=== PATIENT | female | born 1995 | race Caucasian/White ===

== ENCOUNTER 2016-07-22 19:08 | Emergency (ER) | payer OTHER ==
[~2016-07-22] VITALS: Ht 160 cm; Wt 90.0 kg
[~2016-07-22 19:08] MED LIST: CEPH500C PO; FERR27TA PO; FERROUS SULFATE PO; HYDR-906 PO; IBUP-1542 PO; NAPR-260 PO; PHEN177S43 MT; PREN1TAB49 PO
[2016-07-22 19:47] VITALS: Ht 160 cm; Wt 90.0 kg
[2016-07-22 20:23] LABS: URINE BLOOD (Dip) POC 2+ (NEGATIVE)
[2016-07-22] MEDS ORDERED: KETOROLAC 60 MG INJ IM STA (20:36)
[2016-07-22] MEDS ORDERED: ONDANSETRON (ODT) 4 MG TAB ODT STA (20:36)
[2016-07-22] MEDS ORDERED: HYDR-906 PO (20:45)
[2016-07-22] MEDS ORDERED: IBUP-1542 PO (20:45)
--- NOTE | 2016-07-22 20:51 | ERD ---
ER Documentation Chief Complaint Date/Time DATE: 07/22/16 TIME: 20:50 Chief Complaint Frequency and burning in Urine since 1200 HPI This 21-year-old female presents with dysuria starting today. She also has pain in the right flank rating to her right groin. She has a history of kidney stones 4 years ago. She has a fevers, vomiting, short breath or chest pain. She denies . ROS All systems reviewed and are negative except as per history of present illness. Medications Home Meds Active Scripts Hydrocodone/Acetaminophen ([place] 5-325 Tablet) 1 Each Tablet, 1 TAB PO Q6H Y for PAIN, #14 TAB Prov:JACK GLOVER MD 07/22/16 Ibuprofen* (Motrin*) 600 Mg Tab, 600 MG PO Q6, #20 TAB Prov:JACK GLOVER MD 07/22/16 Naproxen* (Naprosyn*) 500 Mg Tablet, 500 MG PO BID Y for PAIN AND/OR INFLAMMATION, #30 TAB Prov:NIA TORRES PA-C 05/13/16 Hydrocodone/Acetaminophen ([place] 5-325 Tablet) 1 Each Tablet, 1 TAB PO Q6H Y for PAIN, #20 TAB Prov:NIA TORRES PA-C 05/13/16 Phenol* (Chloraseptic* [place]) 177 Ml [place].pump, 2 SPRAY MT Q2H Y for SORE THROAT for 7 Days, BOTTLE Prov:GIOVANI ROMO 03/28/15 Ibuprofen* (Motrin*) 600 Mg Tab, 600 MG PO Q8 for PAIN AND/OR INFLAMMATION, #20 Prov:GIOVANI ROMO 03/28/15 Hydrocodone Bit-Acetaminophen ([place]) 5-325 Mg Tablet, 1 TAB PO Q4H Y for PAIN, #7 TAB Prov:GIOVANI ROMO 03/28/15 Cephalexin* (Cephalexin*) 500 Mg Capsule, 500 MG PO Q6 for 7 Days, CAP Prov:GIOVANI ROMO 03/28/15 Reported Medications [Ferous Sulphate] No Conflict Check, PO TID for 30 Days 02/25/12 Vits W-Ca,Fe,Fa(<1MG) () 1 Tab Tablet, 1 TAB PO DAILY for 30 Days 8/29/12 Ferrous Sulfate (Iron) 1 Tab Tablet, 1 TAB PO DAILY 09/17/11 Vits W-Ca,Fe,Fa(<1MG) () 1 Tab Tablet, 1 TAB PO DAILY 09/17/11 Allergies Allergies: Coded Allergies: No Known Allergy (Unverified , 03/28/15) PMhx/Soc History of Surgery: Yes (KIDNEY STONES) Anesthesia Reaction: No Hx Neurological Disorder: No Hx Respiratory Disorders: No Hx Cardiac Disorders: No Hx Psychiatric Problems: No Hx Miscellaneous Medical Probl: No Hx Alcohol Use: Yes (Occasional) Hx Substance Use: No Hx Tobacco Use: No Physical Exam Vitals Vital Signs Date Time Temp Pulse Resp B/P Pulse Ox O2 Delivery O2 Flow Rate FiO2 07/22/16 19:47 98.2 81 20 132/81 100 Physical Exam Const: [] Alert, not ill-appearing. Head: Atraumatic Eyes: Normal Conjunctiva ENT: Normal External Ears, Nose and Mouth. Neck: Full range of motion..~ No meningismus. Resp: Clear to auscultation bilaterally Cardio: Regular rate and rhythm, no murmurs Abd: Soft, mild tenderness the right flank rating to the right mid abdomen., non distended. Normal bowel sounds Skin: No petechiae or rashes Back: No midline tenderness or deformities. Mild right flank tenderness radiating to the right lower abdomen. Ext: No cyanosis, or edema Neur: Awake and alert Psych: Normal Mood and Affect Results 24 hrs Laboratory Tests Test 07/22/16 20:24 Bedside Urine Blood 2+ Bedside Urine Glucose (UA) Negative Bedside Urine Ketones (LAB) Negative Bedside Urine Leukocyte Esterase (L Negative Bedside Urine Nitrite (LAB) Negative Bedside Urine Protein (LAB) Negative Bedside Urine pH (LAB) 6.0 Current Medications Medications (Trade) Dose Ordered Sig/Damion Route PRN Reason Start Time Stop Time Status Last Admin Dose Admin Ketorolac Tromethamine (Toradol) 60 mg ONCE STAT IM 07/22/16 20:36 07/22/16 20:38 DC 07/22/16 20:42 Acetaminophen/ Hydrocodone Bitart ([place] (5/325)) 1 tab ONCE ONCE PO 07/22/16 21:00 07/22/16 21:01 07/22/16 20:43 Ondansetron HCl (Zofran Odt) 8 mg ONCE STAT ODT 07/22/16 20:36 07/22/16 20:38 DC 07/22/16 20:42 Procedures/MDM Urine shows positive hemoglobin without leukocytes, nitrites or glucose. Patient was given Toradol 60 modems IM, and [place] 5 modems by mouth and Zofran [address] abdomen and pelvis results pending at time of dictation. Patient will be signed out to nurse chloe dejesus supervising ER physician for evaluation of CT results. Patient signed symptoms suggestive of possible renal colic. Signs or symptoms currently not suggestive of appendicitis, acute abdomen, tumor an abscess, PID, sepsis, additional causes of abdominal pain or flank pain and dysuria. Departure Diagnosis: Primary Impression: Kidney stone Condition: Stable Patient Instructions: Flank Pain, Uncertain Cause, Kidney Stone W/ Colic Additional Instructions: Drink any fluids. Recheck for new or worsening symptoms-fevers, worsening pain, new or worsening symptoms or with primary care doctor. JACK GLOVER MD Jul 22, 2016 20:51
[2016-07-22] MEDS ORDERED: HYDROCODONE/APAP (5/325) TAB PO ONE (21:00)
--- NOTE | 2016-07-22 21:47 | RADRPT ---
PROCEDURE: CT Abdomen and Pelvis without contrast CLINICAL INDICATION: Point pain, hematuria TECHNIQUE: Transaxial images were obtained through the abdomen and pelvis on a multi-slice scanner without the intravenous contrast administration. No oral contrast had previously been given. Sagit kyra and coronal re-formations were subsequently reconstructed. One or more of the following dose reduction techniques were used: - Automated exposure control. - Adjustment of the mA and/or kV according to patient size. - Use of iterative reconstruction technique. Radiation dose: CTDIvol = 19.57 mGy; DLP = 1062.75 mGy-cm. COMPARISON: No prior studies are available for comparison. FINDINGS: Lung bases: The visualized lung bases appear unremarkable. Liver: The liver is enlarged but no focal lesion is identified. Gallbladder: The wall is not thickened. No radiopaque stones are identified. Bile ducts: The intra and extrahepatic bile ducts are normal in caliber. Pancreas: Appears normal with no mass or inflammation evident. Spleen: Normal in size with no focal lesion. Adrenals: Normal with no mass identified. Kidneys, ureters and bladder: A 6 x 5 x 5 mm distal right ureterolith is seen at the right ureterove sicular junction associated with mild right hydronephrosis/hydroureter. A 4 mm nonobstructing nephr olith is seen within the superior pole salome of the right kidney, a 2 mm nephrolith is seen within t he posterior superior pole salome, and a 2 mm calcification is seen within a midpole salome. On the l eft, at least 5 nonobstructing nephroliths from 2-3 mm are evident but there is no hydronephrosis an d the left ureter is unremarkable. The bladder appears normal. Reproductive organs: The uterus is midline and contains an IUD. No adnexal mass is evident. Stomach and bowel: The stomach appears unremarkable but contains a moderate amount of food debris. There is abundant stool within the colon but there is no evidence of bowel obstruction or inflammati on. Appendix: A normal vermiform appendix is evident. Peritoneum: No free intraperitoneal fluid or air is identified. Aorta: Normal in caliber with no aneurysmal dilatation. IVC: Unremarkable. Lymph nodes: No pathologically enlarged nodes are identified. Osseous structures: The osseous elements appear intact. IMPRESSION: 1. A 6 x 5 x 5 mm distal right ureterolith seen at the right ureterovesicular junction associated w ith mild right hydronephrosis/hydroureter. Several bilateral nephroliths are identified but there i s no evidence of urinary outflow obstruction on the left and there is no ureterolith on the left. T he bladder appears unremarkable. 2. No evidence of bowel obstruction or inflammation with a normal-appearing vermiform appendix. Sub stantial stool seen in the colon and the stomach is moderately distended with food debris. 3. Mild hepatomegaly with no focal lesion. 4. An IUD is seen within the uterus. 5. Otherwise, unremarkable noncontrast enhanced CT scan of the abdomen and pelvis. Physician Mela Date Time Electronically viewed and signed by Physician Mela on 07/22/2016 21:47 RH/
--- NOTE | 2016-07-22 22:51 | QN ---
Documentation Comment PROCEDURE: CT Abdomen and Pelvis without contrast CLINICAL INDICATION: Point pain, hematuria TECHNIQUE: Transaxial images were obtained through the abdomen and pelvis on a multi-slice scanner without the intravenous contrast administration. No oral contrast had previously been given. Sagittal and coronal re-formations were subsequently reconstructed. One or more of the following dose reduction techniques were used: - Automated exposure control. - Adjustment of the mA and/or kV according to patient size. - Use of iterative reconstruction technique. Radiation dose: CTDIvol = 19.57 mGy; DLP = 1062.75 mGy-cm. COMPARISON: No prior studies are available for comparison. FINDINGS: Lung bases: The visualized lung bases appear unremarkable. Liver: The liver is enlarged but no focal lesion is identified. Gallbladder: The wall is not thickened. No radiopaque stones are identified. Bile ducts: The intra and extrahepatic bile ducts are normal in caliber. Pancreas: Appears normal with no mass or inflammation evident. Spleen: Normal in size with no focal lesion. Adrenals: Normal with no mass identified. Kidneys, ureters and bladder: A 6 x 5 x 5 mm distal right ureterolith is seen at the right ureterovesicular junction associated with mild right hydronephrosis /hydroureter. A 4 mm nonobstructing nephrolith is seen within the superior pole salome of the right kidney, a 2 mm nephrolith is seen within the posterior superior pole salome, and a 2 mm calcification is seen within a midpole salome. On the left, at least 5 nonobstructing nephroliths from 2-3 mm are evident but there is no hydronephrosis and the left ureter is unremarkable. The bladder appears normal. Reproductive organs: The uterus is midline and contains an IUD. No adnexal mass is evident. Stomach and bowel: The stomach appears unremarkable but contains a moderate amount of food debris. There is abundant stool within the colon but there is no evidence of bowel obstruction or inflammation. Appendix: A normal vermiform appendix is evident. Peritoneum: No free intraperitoneal fluid or air is identified. Aorta: Normal in caliber with no aneurysmal dilatation. IVC: Unremarkable. Lymph nodes: No pathologically enlarged nodes are identified. Osseous structures: The osseous elements appear intact. IMPRESSION: 1. A 6 x 5 x 5 mm distal right ureterolith seen at the right ureterovesicular junction associated with mild right hydronephrosis/hydroureter. Several bilateral nephroliths are identified but there is no evidence of urinary outflow obstruction on the left and there is no ureterolith on the left. The bladder appears unremarkable. 2. No evidence of bowel obstruction or inflammation with a normal-appearing vermiform appendix. Substantial stool seen in the colon and the stomach is moderately distended with food debris. 3. Mild hepatomegaly with no focal lesion. 4. An IUD is seen within the uterus. 5. Otherwise, unremarkable noncontrast enhanced CT scan of the abdomen and pelvis. Physician Mela Date Time Electronically viewed and signed by Physician Mela on 07/22/2016 21:47 RH/ CC: JACK GLOVER MD, Dr signed out this patient with me pending CT scan results, this was reviewed, patient has kidney stones, patient is discharged according to his instruction, patient is stable upon discharge. PRASAD PHILLIP NP Jul 22, 2016 22:51
[2016-07-23] MEDS ORDERED: ONDA4TAB14 PO (09:29)
[2016-07-23] MEDS ORDERED: TAMS-14 PO (09:30)
[2016-07-23] MEDS ORDERED: NAPR-260 PO (09:30)
== END 2016-07-22 23:06 | disposition home or self-care (01) ==
LOC: FTE 19:08
DX: N20.0 Calculus of kidney (principal); R11.10 Vomiting, unspecified
CPT/HCPCS: 74176; 81003; J1885; Z7610; 96372

== ENCOUNTER 2016-07-23 08:39 | Emergency (ER) | payer OTHER ==
[~2016-07-23] VITALS: Wt 85.0 kg
--- NOTE | 2016-07-23 09:16 | ERD ---
ER Documentation Chief Complaint Date/Time DATE: 07/23/16 TIME: 09:14 Chief Complaint RIGHT FLANK PAIN SINCE YESTERDAY. SEEN IN ER, DX KIDNEY STONES. NO RELEIF HPI 21 y/o female presents to ED for right flank pain. Pain was described as sharp non-radiating with a rate of 10/10 at this time. Was here at the emergency room last night for the same complaint. CT scan of the abdomen/pelvis was done last night revealed right kidney stone. Was discharged with final diagnosis of right kidney stone and with prescriptions of Tylenol and Motrin patient states that Motrin did not help her. Denies headache, loss of consciousness, dizziness, blurry vision, changes in vision, photophobia, facial pain, ear pain, throat pain, difficulty swallowing, neck pain, shoulder pain, chest pain, cough, hemoptysis, loss of appetite, nausea, vomiting, hematochezia, diarrhea, constipation, urinary symptoms, , the possibility of being , bladder and bowel incontinences, extremity weakness, extremity tenderness, numbness or tingling sensation, difficulty walking, recent travel, recent exposure to illness, recent antibiotic use in the last 3 months, fever, chills. Allergy: NKA PMH: Right kidney stone 10 years ago. Family medical history: Denies AO LMP: "I am on it right now." Medications: Tylenol, Motrin Surgery: Lithotripsy 10 years ago. Primary Social History: printer assistant. Occasional drinks alcoholic beverages. Denies smoking, use of illegal drugs. ROS All systems reviewed and are negative except as per history of present illness. Medications Home Meds Active Scripts Naproxen* (Naprosyn*) 500 Mg Tablet, 500 MG PO BID Y for PAIN AND/OR INFLAMMATION, #30 TAB Prov:PASILABANRICHARDAR F 07/23/16 Tamsulosin Hcl* (Flomax*) 0.4 Mg Cap.er.24h, 0.4 MG PO DAILY, #30 CAP Prov:PASILABAN,RICHARDAR F 07/23/16 Ondansetron (Ondansetron Odt) 4 Mg Tab.rapdis, 4 MG PO Q6H Y for NAUSEA AND/OR VOMITING, #10 TAB Prov:PASILABAN,KLAR F 07/23/16 Hydrocodone/Acetaminophen ([place] 5-325 Tablet) 1 Each Tablet, 1 TAB PO Q6H Y for PAIN, #14 TAB Prov:JACK GLOVER MD 07/22/16 Ibuprofen* (Motrin*) 600 Mg Tab, 600 MG PO Q6, #20 TAB Prov:JACK GLOVER MD 07/22/16 Naproxen* (Naprosyn*) 500 Mg Tablet, 500 MG PO BID Y for PAIN AND/OR INFLAMMATION, #30 TAB Prov:NIA TORRES PA-C 05/13/16 Hydrocodone/Acetaminophen ([place] 5-325 Tablet) 1 Each Tablet, 1 TAB PO Q6H Y for PAIN, #20 TAB Prov:NIA TORRESC 05/13/16 Phenol* (Chloraseptic* [place]) 177 Ml [place].pump, 2 SPRAY MT Q2H Y for SORE THROAT for 7 Days, BOTTLE Prov:GIOVANI ROMO 03/28/15 Ibuprofen* (Motrin*) 600 Mg Tab, 600 MG PO Q8 for PAIN AND/OR INFLAMMATION, #20 Prov:GIOVANI ROMO 03/28/15 Hydrocodone Bit-Acetaminophen ([place]) 5-325 Mg Tablet, 1 TAB PO Q4H Y for PAIN, #7 TAB Prov:GIOVANI ROMO 03/28/15 Cephalexin* (Cephalexin*) 500 Mg Capsule, 500 MG PO Q6 for 7 Days, CAP Prov:GIOVANI ROMO 03/28/15 Reported Medications [Ferous Sulphate] No Conflict Check, PO TID for 30 Days 02/25/12 Vits W-Ca,Fe,Fa(<1MG) () 1 Tab Tablet, 1 TAB PO DAILY for 30 Days 02/25/12 Ferrous Sulfate (Iron) 1 Tab Tablet, 1 TAB PO DAILY 09/17/11 Vits W-Ca,Fe,Fa(<1MG) () 1 Tab Tablet, 1 TAB PO DAILY 09/17/11 Allergies Allergies: Coded Allergies: No Known Allergy (Unverified , 07/23/16) PMhx/Soc Right kidney stones 10 years ago. History of Surgery: Yes (KIDNEY STONES) Anesthesia Reaction: No Hx Neurological Disorder: No Hx Respiratory Disorders: No Hx Cardiac Disorders: No Hx Psychiatric Problems: No Hx Miscellaneous Medical Probl: No Hx Alcohol Use: Yes (Occasional) Hx Substance Use: No Hx Tobacco Use: No Smoking Status: Never smoker FmHx Denies Physical Exam Vitals Vital Signs Date Time Temp Pulse Resp B/P Pulse Ox O2 Delivery O2 Flow Rate FiO2 07/23/16 08:42 98.5 85 20 135/82 99 Physical Exam CONSTITUTIONAL: Well-appearing; well-nourished; in no apparent distress. HEAD: Normocephalic; atraumatic. EYES: Conjunctiva clear, sclera non-icteric, EOM intact. PERRL Ears: Hearing intact. EACs clear, TMs non-bulging, non-inflamed, translucent & mobile, ossicles normal appearance, No obstructions, no erythema, no discharges Nose: No obstructions. No polyps. No external lesions. Mucosa non-inflamed. No external lesions, septum and turbinates normal. No rhinorrhea. No discharges. Frontal sinus is non-tender to palpation. Maxillary sinus is non-tender to palpation. MOUTH: Moist mucous membranes, no lesion, no obstructions, no vesicles, no thrush, patent airway Throat: Uvula in midline. Right tonsil is +1 with no erythema, no exudate. Left tonsil is +1 with no erythema, no exudate. Tolerating secretions well. Good gag reflex. Patent airway. Neck: Supple, without lesions, bruits, or adenopathy. No mass. Thyroid non- enlarged and non-tender to palpation. CHEST: Symmetrical chest. Respirations even and not labored. No retractions noted. CARDIOVASCULAR: Normal S1, S2. RRR. No murmurs, gallops. RESPIRATORY: Normal chest excursion with respiration; breath sounds clear and equal bilaterally; no wheezes, rhonchi, or rales. Breathing even and unlabored. Speaking in clear, full, and complete sentences w/ ease. ABDOMEN: Normal bowel sounds normal. Soft, round, non-distended, non-guarding, no tenderness, no rebound, no organomegaly, no masses, no pulsating abdominal mass. No hernia. No peritoneal signs. : Right CVA tenderness. BACK: Symmetrical shoulder. Spine is midline without deformity, tenderness. No evidence of trauma or deformity. PELVIS: Stable pelvis. No evidence of trauma or deformity. MUSCULOSKELETAL: Normal gait and station. No misalignment, asymmetry, crepitation, defects, tenderness, masses, effusions, decreased range of motion, instability, atrophy or abnormal strength or tone in the head, neck, spine, ribs , pelvis or extremities. No calf tenderness. NEUROVASCULAR: Distal pulses are present. Pedal pulse are present, equal, and normal. Capillary refills are < 2 seconds. NEUROLOGIC: Alert and oriented x4. Speaks full and clear sentences. Cranial Nerves II-XII normal. Sensation to pain, touch, and proprioception normal. Grossly unremarkable. No neurologic deficits. Romberg test is negative. PSYCHOLOGICAL: The patients mood and manner are appropriate. No hallucinations , delusions. Not SI. Not HI. Has the capacity to decide for self SKIN: Normal for age and ethnicity; warm; dry; good turgor; no apparent lesions or exudates. No rashes, hives, discoloration. Intact. Results 24 hrs Current Medications Medications (Trade) Dose Ordered Sig/Damion Route PRN Reason Start Time Stop Time Status Last Admin Dose Admin Ketorolac Tromethamine (Toradol) 30 mg ONCE STAT IM 07/23/16 09:25 07/23/16 09:26 DC 07/23/16 09:35 Ondansetron HCl (Zofran Odt) 4 mg ONCE STAT ODT 07/23/16 09:25 07/23/16 09:26 DC 07/23/16 09:35 Procedures/MDM Examination: Unremarkable examination except right CVA tenderness. Case, medical management, follow-up care was discussed with supervising physician. He agreed with my medical management and follow-up care. Disease process, medical treatment was explained to the patient and family member. They verbalized understanding and agreed with the diagnostic tests, medical treatment, and follow-up care. Treatment: Toradol IM, Zofran ODT. Re-evaluation: Relieve the pain. Consultation: None Differential diagnosis: Kidney stones versus sciatica versus back pain Medical decision makin21 y/o female presents to ED for right flank pain. Pain was described as sharp non-radiating with a rate of 10/10 at this time. Was here at the emergency room last night for the same complaint. CT scan of the abdomen/pelvis was done last night revealed right kidney stone. Was discharged with final diagnosis of right kidney stone and with prescriptions of Tylenol and Motrin patient states that Motrin did not help her. Case was discussed with supervising physician. Patient was managed with pain medication and was discharged home with Flomax, Motrin. Patient's history, complaint, diagnostic tests yesterday, physical findings are consistent with my final diagnosis of kidney stones. Medications prescribed are the following: Motrin, Flomax Patient and family member are made aware of the side effects and adverse reactions of the medications prescribed. Instructed on when to seek emergent and medical attention in case allergic/anaphylactic reactions or severe side effects and or adverse reactions to medications. Patient and family member verbalized understanding. Patient instructed Instructed to follow-up with his PCP in 24-48 hours. PCP will refer patient to urologist/electrician radio. Instructed to Call 911 for chest pain, shortness of breath. Advised to come back here in ED as soon as possible for severity of symptoms which includes but not limited to: any new symptoms; shortness of breath/difficulty of breathing; cardiovascular changes; severe gastrointestinal symptoms; signs and symptoms of bleeding and or infection; signs of compartment syndrome/neurovascular changes; neurological changes/deficits. Patient and family member verbalized understanding. Upon discharge, patient is alert and oriented x 4, speaks full and clear sentences, denies pain, has no neurological deficits, has no neurovascular deficits, difficulty of breathing. Breathing even and unlabored. Lung sounds are clear to auscultation. Not in distress. Appears comfortable. Ambulatory with steady gait. Appears satisfied with care provided here in ED. Departure Condition: Stable Additional Instructions: Follow-up with PCP in 24-48 hours. PCP will refer patient to urologist/ electrician radio. ORESTES MAC Jul 23, 2016 09:15
[2016-07-23] MEDS ORDERED: KETOROLAC 30 MG INJ IM STA (09:25)
[2016-07-23] MEDS ORDERED: ONDANSETRON (ODT) 4 MG TAB ODT STA (09:25)
[2016-07-23] MEDS ORDERED: ONDA4TAB14 PO (09:29)
[2016-07-23] MEDS ORDERED: TAMS-14 PO (09:30)
[2016-07-23] MEDS ORDERED: NAPR-260 PO (09:30)
== END 2016-07-23 09:57 | disposition home or self-care (01) ==
LOC: FTE 08:39
DX: N20.0 Calculus of kidney (principal)
CPT/HCPCS: J1885; Z7610; 96372

== ENCOUNTER 2016-07-25 18:54 | Emergency (ER) | payer OTHER ==
[~2016-07-25] VITALS: Wt 93.0 kg
[~2016-07-25 18:54] MED LIST changes: +ONDA4TAB14 PO; +TAMS-14 PO
[2016-07-25] MEDS ORDERED: SOD CHLORIDE 0.9% 1,000 ML IV STA (21:06)
[2016-07-25] MEDS ORDERED: morphine 4 MG/ML VIAL IV STA (21:06)
[2016-07-25] MEDS ORDERED: KETOROLAC 30 MG INJ IV STA (21:06)
[2016-07-25] MEDS ORDERED: ONDANSETRON 4 MG INJ IV STA (21:06)
[2016-07-25 21:31] LABS: ADD UMIC YES; URINE BILIRUBIN (Dip) NEGATIVE (NEGATIVE); URINE BLOOD (Dip) TRACE (NEGATIVE); URINE COLOR LT. YELLOW (YELLOW); URINE GLUCOSE (Dip) NEGATIVE (NEGATIVE); URINE KETONES (Dip) NEGATIVE (NEGATIVE); URINE LEUKOCYTE ESTERASE (Dip) TRACE (NEGATIVE); URINE NITRITE (Dip) NEGATIVE (NEGATIVE); URINE TOTAL PROTEIN (Dip) NEGATIVE (NEGATIVE); URINE UROBILINOGEN (Dip) 0.2 E.U./dL (0.1-1.0)
[2016-07-25 21:49] LABS: BACTERIA,URINE RARE; SQUAMOUS EPITHELIAL CELL,UR FEW
[2016-07-25 21:57] LABS: ALBUMIN 3.8 g/dl (3.3-4.9)
[2016-07-25 22:00] LABS: ALBUMIN/GLOBULIN RATIO 1.05; BILIRUBIN,INDIRECT 0.1 mg/dl (0-1.1); BILIRUBIN,TOTAL 0.1 mg/dl (0.2-1.3); CREATININE 0.74 mg/dl (0.44-1.00); TOTAL PROTEIN 7.4 g/dl (6.1-8.1)
[2016-07-25 22:01] LABS: BASOPHILS % 0.3 % (0.0-2.0); CALCIUM 8.8 mg/dl (8.4-10.2); EOSINOPHILS # 0.2 10^3/ul (0.0-0.5); EOSINOPHILS % 1.4 % (0.0-7.0); HEMATOCRIT 35.6 % (37.0-47.0); HEMOGLOBIN 11.9 g/dl (12.0-16.0); LYMPHOCYTES # 3.4 10^3/ul (0.8-2.9); LYMPHOCYTES % 26.6 % (15.0-51.0); MEAN CORPUSCULAR HGB CONC 33.5 g/dl (32.0-37.0); MEAN CORPUSCULAR VOLUME 77.6 fl (82.0-101.0); MEAN PLATELET VOLUME 8.7 fl (7.4-10.4); MONOCYTES % 7.8 % (0.0-11.0); NEUTROPHIL # 8.2 10^3/ul (1.6-7.5); NEUTROPHILS % 63.9 % (39.0-77.0); PLATELET COUNT 258 10^3/UL (140-440); RED BLOOD COUNT 4.58 10^6/ul (4.20-5.40); RED CELL DISTRIBUTION WIDTH 13.8 % (11.5-14.5); UNCORRECTED WBC 12.9 10^3/ul (4.8-10.8); WHITE BLOOD COUNT 12.9 10^3/ul (4.8-10.8)
[2016-07-25 22:07] LABS: CONDITION 1; LH ANALYZER COMMENTS 1
--- NOTE | 2016-07-25 23:50 | ERD ---
ER Documentation Chief Complaint Date/Time DATE: 07/25/16 Chief Complaint Right flank pain, diagnosed with kidney stone 07/22/16, here for pain relief HPI The patient is a 21-year-old female who presents to the Emergency Department with complaint of right flank pain. The patient reports that her pain began three days ago, 07/22/2016, with sudden onset of sharp right-sided flank pain radiating towards the right groin. The patient was evaluated in the Emergency Department for these symptoms, and CT imaging revealed a 6 x 5 x 5 mm distal right ureterolith is seen at the right ureterovesicular junction associated with mild right hydronephrosis/hydroureter, identifying the cause of the patient 's symptoms. The patient's pain was controlled in the ED, and she was discharged home with prescriptions for [place] and Ibuprofen. The patient's pain was controlled throughout that night, but by the next day, she began to experience increasing pain. She returned to the ED on 07/23/2016 for recurrent pain, and was once again given medications in the ED, including Toradol, and her pain resolved. This time, she was discharged home with Naproxen and Flomax (though she has not filled, or taken the Flomax as of yet), and was advised to follow up with her primary medical provider to obtain referral to urology for further evaluation. The patient's pain was well controlled until this afternoon , when it returned. She notes that she has tried to take the prescribed Naproxen (12:00 pm) and [place] (4:00 pm), with no adequate relief of pain. She describes sharp, non-radiating 10/10 right-sided flank pain at this time. Of note, the patient has a known history of prior kidney stones, last treated 10 years ago with lithotripsy. She denies any dysuria, fevers, chills, vomiting, diarrhea, black/bloody stools, vaginal discharge, chest pain, palpitations, shortness of breath. Denies current . The patient does state that after her last ED discharge (07/23/2016) she called her urologist, and was told that the next available appointment is in 2 weeks. ROS All systems reviewed and are negative except as per history of present illness. Medications Home Meds Active Scripts Cephalexin* (Keflex*) 500 Mg Capsule, 500 MG PO QID for 7 Days, CAP Prov:VANNESSA,LAVERNE PA-C 07/25/16 Tamsulosin Hcl* (Flomax*) 0.4 Mg Cap.er.24h, 0.4 MG PO QPM, #14 CAP Prov:LAVERNE HURD PA-C 07/25/16 Oxycodone HCl/Acetaminophen (Percocet 5-325 mg Tablet) 1 Each Tablet, 1 EACH PO Q6, #10 TAB Prov:LAVERNE HURD PA-C 07/25/16 Naproxen* (Naprosyn*) 500 Mg Tablet, 500 MG PO BID Y for PAIN AND/OR INFLAMMATION, #30 TAB Prov:ORESTES MAC 07/23/16 Tamsulosin Hcl* (Flomax*) 0.4 Mg Cap.er.24h, 0.4 MG PO DAILY, #30 CAP Prov:ORESTES MAC F 07/23/16 Ondansetron (Ondansetron Odt) 4 Mg Tab.rapdis, 4 MG PO Q6H Y for NAUSEA AND/OR VOMITING, #10 TAB Prov:ORESTES MAC 07/23/16 Hydrocodone/Acetaminophen ([place] 5-325 Tablet) 1 Each Tablet, 1 TAB PO Q6H Y for PAIN, #14 TAB Prov:JACK GLOVER MD 07/22/16 Ibuprofen* (Motrin*) 600 Mg Tab, 600 MG PO Q6, #20 TAB Prov:JACK GLOVER MD 07/22/16 Naproxen* (Naprosyn*) 500 Mg Tablet, 500 MG PO BID Y for PAIN AND/OR INFLAMMATION, #30 TAB Prov:NIA TORRES PA-C 05/13/16 Hydrocodone/Acetaminophen ([place] 5-325 Tablet) 1 Each Tablet, 1 TAB PO Q6H Y for PAIN, #20 TAB Prov:NIA TORRES PA-C 05/13/16 Phenol* (Chloraseptic* [place]) 177 Ml [place].pump, 2 SPRAY MT Q2H Y for SORE THROAT for 7 Days, BOTTLE Prov:GIOVANI ROMO 03/28/15 Ibuprofen* (Motrin*) 600 Mg Tab, 600 MG PO Q8 for PAIN AND/OR INFLAMMATION, #20 Prov:DIONEEGIOVANI POP 03/28/15 Hydrocodone Bit-Acetaminophen ([place]) 5-325 Mg Tablet, 1 TAB PO Q4H Y for PAIN, #7 TAB Prov:GIOVANI ROMO 03/28/15 Cephalexin* (Cephalexin*) 500 Mg Capsule, 500 MG PO Q6 for 7 Days, CAP Prov:GIOVANI ROMO 03/28/15 Reported Medications [Ferous Sulphate] No Conflict Check, PO TID for 30 Days 02/25/12 Vits W-Ca,Fe,Fa(<1MG) () 1 Tab Tablet, 1 TAB PO DAILY for 30 Days 02/25/12 Ferrous Sulfate (Iron) 1 Tab Tablet, 1 TAB PO DAILY 09/17/11 Vits W-Ca,Fe,Fa(<1MG) () 1 Tab Tablet, 1 TAB PO DAILY 09/17/11 Allergies Allergies: Coded Allergies: No Known Allergy (Unverified , 07/23/16) PMhx/Soc History of Surgery: Yes (KIDNEY STONES) Anesthesia Reaction: No Hx Neurological Disorder: No Hx Respiratory Disorders: No Hx Cardiac Disorders: No Hx Psychiatric Problems: No Hx Miscellaneous Medical Probl: No Hx Alcohol Use: Yes (Occasional) Hx Substance Use: No Hx Tobacco Use: No Physical Exam Vitals Vital Signs Date Time Temp Pulse Resp B/P Pulse Ox O2 Delivery O2 Flow Rate FiO2 07/26/16 00:19 97.9 71 18 115/76 100 Room Air 07/25/16 19:07 99.0 75 20 128/73 97 Physical Exam GENERAL: Well-developed, well-nourished, in no acute distress. HEENT: Head is normocephalic, atraumatic. No scleral pallor or icterus. Pupils equal, round and reactive to light. Conjunctiva pink. Moist mucous membranes. NECK: Supple. Full range of motion. RESPIRATORY: Lungs are clear to auscultation bilaterally. Equal breath sounds. Normal expiratory effort. CARDIOVASCULAR: Regular rate and rhythm. S1 and S2 normal. No murmurs. GASTROINTESTINAL: Abdomen is soft, nontender, and nondistended. No guarding, no rebound tenderness. Normal bowel sounds. No abdominal bruits. No gross peritonitis. No masses or organomegaly. FLANK: No CVA tenderness, no mass or swelling. BACK: Normal range of motion. EXTREMITIES: No clubbing, cyanosis, or edema. Normal skin perfusion. Moving all extremities. Muscle tone is normal. No focal swelling or erythema. Distal pulses are palpable, 2+ bilaterally. Capillary refill is less than 2 seconds. NEUROLOGIC: The patient is alert, awake, and oriented x 3. No focal neurologic deficits. Speech is normal. INTEGUMENT: Skin is clean, dry and intact. No rashes, lesions or petechiae present. Normal turgor. PSYCHIATRIC: Appropriate; Cooperative. Result Diagram: 07/25/16212807/25/162128 Results 24 hrs Laboratory Tests Test 07/25/16 21:19 07/25/16 21:29 Urine Bacteria RARE Urine Bilirubin NEGATIVE Urine Clarity CLEAR Urine Color LT. YELLOW Urine Glucose NEGATIVE% Urine Hemoglobin TRACE Urine Ketones NEGATIVE Urine Leukocyte Esterase TRACE Urine Microscopic RBC 5-10/HPF Urine Microscopic WBC 0-2/HPF Urine Nitrite NEGATIVE Urine Specific [place] 1.015 Urine Squamous Epithelial Cells FEW Urine Total Protein NEGATIVE Urine Urobilinogen 0.2 E.U./dL Urine pH 5.5 Alanine Aminotransferase (ALT/SGPT) 35IU/L Albumin 3.8g/dl Albumin/Globulin Ratio 1.05 Alkaline Phosphatase 65IU/L Anion Gap 18 Aspartate Amino Transf (AST/SGOT) 20IU/L Basophils # 0.010^3/ul Basophils % 0.3% Blood Morphology Comment Blood Urea Nitrogen 12mg/dl Calcium Level 8.8mg/dl Carbon Dioxide Level 26mmol/L Chloride Level 102mmol/L Creatinine 0.74mg/dl Direct Bilirubin 0.00mg/dl Eosinophils # 0.210^3/ul Eosinophils % 1.4% Globulin 3.60g/dl Glucose Level 86mg/dl Hematocrit 35.6% Hemoglobin 11.9g/dl Indirect Bilirubin 0.1mg/dl Lipase 39U/L Lymphocytes # 3.410^3/ul Lymphocytes % 26.6% Mean Corpuscular Hemoglobin 26.0pg Mean Corpuscular Hemoglobin Concent 33.5g/dl Mean Corpuscular Volume 77.6fl Mean Platelet Volume 8.7fl Monocytes # 1.010^3/ul Monocytes % 7.8% Neutrophils # 8.210^3/ul Neutrophils % 63.9% Nucleated Red Blood Cells # 0.010^3/ul Nucleated Red Blood Cells % 0.0/100WBC Platelet Count 95744^3/UL Potassium Level 4.0mmol/L Red Blood Count 4.5810^6/ul Red Cell Distribution Width 13.8% Sodium Level 142mmol/L Total Bilirubin 0.1mg/dl Total Protein 7.4g/dl White Blood Count 12.910^3/ul Current Medications Medications (Trade) Dose Ordered Sig/Damion Route PRN Reason Start Time Stop Time Status Last Admin Dose Admin Sodium Chloride (NS) 1,000 ml @ 1,000 mls/hr Q1H STAT IV 07/25/16 21:06 07/25/16 22:05 DC 07/25/16 21:25 Morphine Sulfate (morphine) 4 mg ONCE STAT IV 07/25/16 21:06 07/25/16 21:07 DC 07/25/16 21:26 Ondansetron HCl (Zofran Inj) 4 mg ONCE STAT IV 07/25/16 21:06 07/25/16 21:07 DC 07/25/16 21:26 Ketorolac Tromethamine (Toradol) 30 mg ONCE STAT IV 07/25/16 21:06 07/25/16 21:07 DC 07/25/16 21:26 Procedures/MDM CONSULTATION: Dr. Briscoe, ED supervising physician: Recommends laboratory analysis, urinalysis and medications for pain relief. Recommends consultation with urology, given that this is patient's third visit. Dr. Cuellar, Urology, 23:48. Recommends discharge home and that patient follow up in his office on Thursday. Recommends rx for Flomax Dr. Briscoe, ED supervising physician: Discussed recommendation of urology, and Dr. Briscoe agrees that patient may be discharged home. Patient's urinalysis with trace urine leukocyte esterase, and therefore recommends that patient be discharged home with rx for Keflex. Also recommends rx for Percocet for additional pain control, as her pain is not adequately improved with the prescribed [place]. EMERGENCY DEPARTMENT COURSE: The patient was stable throughout the ED course. IV access established by nursing staff. Fluids, Morphine, Zofran and Toradol were administered. On reevaluation, the patient was sleeping comfortably, with no signs of acute distress. She reports complete resolution of pain at this time , and feels comfortable going home. Discussed consultation with Dr. Cuellar, urologist on-call, and patient was given information for Dr. Cuellar's office, in order to call Thursday in order to be seen. Patient's results were discussed with her, and she was given a copy that she is advised to bring with her on Thursday. She is advised of the possibility of an early infection (despite no urinary symptoms) and therefore will taken the Keflex as directed. Additionally , advised use of Flomax 0.4 mg QHS per urology recommendation (repeat rx provided). The patient is advised that both Naproxen and Ibuprofen are NSAIDs, and should therefore only take one or the other. With regard to stronger pain control until she can be seen by Urology, patient is advised to throw away remaining [place] prescription, and she will be given a prescription for Percocet 5/325 instead. Patient complies and agrees with plan. MEDICAL DECISION MAKING: This is a 21-year-old female presenting to the Emergency Department with right flank pain. The patient was seen in the ED on for the same symptoms, and diagnosed with right kidney stone. No current clinical suspicion for other differentials, including AAA, pyelonephritis, biliary colic, pancreatitis, appendicitis, aortic dissection, mesenteric ischemia, hernia, perforated viscous, diverticulitis, bowel obstruction, cancer, torsion, fibroids, shingles, retroperitoneal abscess/ hematoma. She had no lower abdominal tenderness to suggest appendicitis. Abdomen was soft , non-tender, non-distended, no indication of acute/surgical abdomen. No RUQ tenderness to suggest cholecystitis, choledocholithiasis. No CVA tenderness, fevers, vomiting, to suggest pyelonephritis. No pelvic pain or new discharge to suggest TOA, cervicitis, PID. CBC reveals no significant anemia. No significant electrolyte abnormalities noted to require medication replacement. No transaminitis. Creatinine and BUN within normal limits, no prerenal azotemia or acute kidney injury. Urinalysis with trace urine leukocyte esterase, and therefore patient will be placed on Keflex for coverage of possible early infection. However, patient with no current urinary symptoms. After rest and administration of fluids and medications, the patient reports no new complaints, and resolved pain. Urology specialist was consulted, as this is patient's third visit, and recommends that the patient be discharged home to follow up in his office on Thursday. He states that at this time, no indication for inpatient admission or emergent procedure. At this time, the patient is in stable condition and therefore she can be discharged home with prescriptions for Percocet, Keflex and Flomax, and given strict return precautions for signs of deteriorating or worsening condition. The patient is advised to follow up with a urologist within 2-3 days for reevaluation and further management, or return to the ER sooner for any new or worsening symptoms. I shared my medical decision making and plan with the patient at length and in great detail, and the patient verbally understands and agrees with the plan for further observation and care as an outpatient. At the time of discharge, all questions were answered. Departure Diagnosis: Primary Impression: Ureteral colic Additional Impression: Right flank pain Condition: Stable Patient Instructions: Kidney Stone W/ Colic Additional Instructions: Follow up with urology within 2-3 days for reevaluation and further management. Return to the ED sooner for any new or worsening symptoms. LAVERNE HURD PA-C Jul 25, 2016 23:50
[2016-07-25] MEDS ORDERED: OXYC-279 PO (23:51)
[2016-07-25] MEDS ORDERED: TAMS-14 PO (23:51)
[2016-07-25] MEDS ORDERED: CEPH-443 PO (23:52)
[2016-07-26 00:19] VITALS: BP 115/76; PULSE 71; RESP 18; TEMP 97.9
== END 2016-07-26 00:19 | disposition home or self-care (01) ==
LOC: FTE 18:54
DX: N23 Unspecified renal colic (principal)
CPT/HCPCS: 36415; 80053; 81001; 83690; 85025; 96361; 96374; 96375; J1885; J2270; J2405; J7030; Z7502; 81003

== ENCOUNTER 2016-12-07 13:41 | Emergency (ER) | payer OTHER ==
[~2016-12-07] VITALS: Ht 160 cm; Wt 91.5 kg
[~2016-12-07 13:41] MED LIST changes: +CEPH-443 PO; +OXYC-279 PO
[2016-12-07 13:46] VITALS: Ht 160 cm; Wt 91.5 kg
[2016-12-07] MEDS ORDERED: IBUP-1542 PO (13:58)
[2016-12-07] MEDS ORDERED: AMO500 PO (13:58)
--- NOTE | 2016-12-07 14:00 | ERD ---
ER Documentation Chief Complaint Date/Time DATE: 12/07/16 TIME: 13:58 Chief Complaint Complains of sorethroat x 2 days HPI This 21-year-old female presents with sore throat for last 2 days. She may have had tactile fevers. She has no cough, vomiting, abdominal pain or diarrhea. ROS All systems reviewed and are negative except as per history of present illness. Medications Home Meds Active Scripts Amoxicillin* (Amoxicillin*) 500 Mg Cap, 500 MG PO TID for 10 Days, CAP Prov:JACK GLOVER MD 12/07/16 Ibuprofen* (Motrin*) 600 Mg Tab, 600 MG PO Q6, #15 TAB Prov:JACK GLOVER MD 12/07/16 Cephalexin* (Keflex*) 500 Mg Capsule, 500 MG PO QID for 7 Days, CAP Prov:LAVERNE HURD PA-C 07/25/16 Tamsulosin Hcl* (Flomax*) 0.4 Mg Cap.er.24h, 0.4 MG PO QPM, #14 CAP Prov:LAVERNE HURD PA-C 07/25/16 Oxycodone HCl/Acetaminophen (Percocet 5-325 mg Tablet) 1 Each Tablet, 1 EACH PO Q6, #10 TAB Prov:LAVERNE HURD PA-C 07/25/16 Naproxen* (Naprosyn*) 500 Mg Tablet, 500 MG PO BID Y for PAIN AND/OR INFLAMMATION, #30 TAB Prov:ORESTES MAC 07/23/16 Tamsulosin Hcl* (Flomax*) 0.4 Mg Cap.er.24h, 0.4 MG PO DAILY, #30 CAP Prov:ORESTES MAC 07/23/16 Ondansetron (Ondansetron Odt) 4 Mg Tab.rapdis, 4 MG PO Q6H Y for NAUSEA AND/OR VOMITING, #10 TAB Prov:ORESTES MAC 07/23/16 Hydrocodone/Acetaminophen ([place] 5-325 Tablet) 1 Each Tablet, 1 TAB PO Q6H Y for PAIN, #14 TAB Prov:JACK GLOVER MD 07/22/16 Ibuprofen* (Motrin*) 600 Mg Tab, 600 MG PO Q6, #20 TAB Prov:JACK GLOVER MD 07/22/16 Naproxen* (Naprosyn*) 500 Mg Tablet, 500 MG PO BID Y for PAIN AND/OR INFLAMMATION, #30 TAB Prov:NIA TORRES PA-C 05/13/16 Hydrocodone/Acetaminophen ([place] 5-325 Tablet) 1 Each Tablet, 1 TAB PO Q6H Y for PAIN, #20 TAB Prov:NIA TORRES PA-C 05/13/16 Phenol* (Chloraseptic* [place]) 177 Ml [place].pump, 2 SPRAY MT Q2H Y for SORE THROAT for 7 Days, BOTTLE Prov:GIOVANI ROMO 03/28/15 Ibuprofen* (Motrin*) 600 Mg Tab, 600 MG PO Q8 for PAIN AND/OR INFLAMMATION, #20 Prov:GIOVANI ROMO 03/28/15 Hydrocodone Bit-Acetaminophen ([place]) 5-325 Mg Tablet, 1 TAB PO Q4H Y for PAIN, #7 TAB Prov:GIOVANI ROMO 03/28/15 Cephalexin* (Cephalexin*) 500 Mg Capsule, 500 MG PO Q6 for 7 Days, CAP Prov:GIOVANI ROMO 03/28/15 Reported Medications [Ferous Sulphate] No Conflict Check, PO TID for 30 Days 02/25/12 Vits W-Ca,Fe,Fa(<1MG) () 1 Tab Tablet, 1 TAB PO DAILY for 30 Days 02/25/12 Ferrous Sulfate (Iron) 1 Tab Tablet, 1 TAB PO DAILY 09/17/11 Vits W-Ca,Fe,Fa(<1MG) () 1 Tab Tablet, 1 TAB PO DAILY 09/17/11 Allergies Allergies: Coded Allergies: No Known Allergy (Unverified , 07/23/16) PMhx/Soc History of Surgery: Yes (KIDNEY STONES) Anesthesia Reaction: No Hx Neurological Disorder: No Hx Respiratory Disorders: No Hx Cardiac Disorders: No Hx Psychiatric Problems: No Hx Miscellaneous Medical Probl: No Hx Alcohol Use: Yes (Occasional) Hx Substance Use: No Hx Tobacco Use: No Physical Exam Vitals Vital Signs Date Time Temp Pulse Resp B/P Pulse Ox O2 Delivery O2 Flow Rate FiO2 12/07/16 13:46 98.7 90 20 128/61 97 Physical Exam Const: [], [id number] Head: Atraumatic Eyes: Normal Conjunctiva ENT: Normal External Ears, Nose and Mouth. Tonsils 3+ with erythema and exudate. There is tender anterior cervical lymphadenitis. Neck: Full range of motion..~ No meningismus. Resp: Clear to auscultation bilaterally Cardio: Regular rate and rhythm, no murmurs Abd: Soft, non tender, non distended. Normal bowel sounds Skin: No petechiae or rashes Back: No midline or flank tenderness Ext: No cyanosis, or edema Neur: Awake and alert Psych: Normal Mood and Affect Procedures/MDM Patient presents with signs and symptoms of acute pharyngitis without evidence of airway obstruction or abscess. She will be treated with amoxicillin and ibuprofen. The patient was stable with no new complaints during the ER course. Clinically, there is no current evidence to suggest meningitis, sepsis, acute abdomen, pneumonia, acute coronary syndrome, pulmonary embolism, or any other emergent condition appearing to require further evaluation or hospitalization. The patient should certainly return for any new or worsening symptoms per the aftercare instructions. They should otherwise follow-up with her primary care doctor for reevaluation this week. Departure Diagnosis: Primary Impression: Sore throat Condition: Stable Patient Instructions: Pharyngitis, Strep (Presumed) Additional Instructions: Recheck for new or worsening symptoms or primary care doctor. JACK GLOVER MD Dec 07, 2016 14:00
== END 2016-12-07 14:30 | disposition home or self-care (01) ==
LOC: FTE 13:41
DX: J02.9 Acute pharyngitis, unspecified (principal)
CPT/HCPCS: 99283

== ENCOUNTER 2018-02-24 19:34 | Emergency (ER) | END 2018-02-25 01:49 | disposition home or self-care (01) ==